=== PATIENT | male | born 1980 | race Caucasian/White ===

== ENCOUNTER 2017-01-12 09:46 | Day surgery (SDC) | payer OTHER ==
--- NOTE | 2017-01-11 13:15 | Pre-Procedure Note/Attestation ---
Pre-Procedure Note/Attestation Complete Prior to Procedure Planned Procedure: right Procedure Narrative: rt knee scope, medial meniscectomy Indications for Procedure Pre-Operative Diagnosis: rt knee medial meniscus tear Attestation I attest that I discussed the nature of the procedure; its benefits; risks and complications; and alternatives (and the risks and benefits of such alternatives ), prior to the procedure, with the patient (or the patient's legal visitor services representative). I attest that, if there was a reasonable possibility of needing a blood transfusion, the patient (or the patient's legal visitor services representative) was given the [facility] standardized written summary, pursuant to the [place] Blood Safety Act ([place] Health and Safety Code # 1645, as amended). I attest that I re-evaluated the patient just prior to the surgery and that there has been no change in the patient's H&P, except as documented below:NONE YUKI PATRICK Jan 11, 2017 13:14
[2017-01-12] VITALS (11 sets, daily range): BP systolic 113–138; BP diastolic 68–94
[~2017-01-12] VITALS: Ht 177.8 cm; Wt 81.6 kg
[~2017-01-12 09:46] MED LIST: NKM; ceFAZolin 1gm in D5W 55ml IVP ONE; celeBREX 200mg Cap **SURGERY PATIENTS ONLY ORAL ONE; oxyCONTIN 20mg tab ORAL ONE
[2017-01-12] MEDS ORDERED: XANAX XR1 MG ORAL (10:18)
[2017-01-12] MEDS ORDERED: Norco 5mg/325mg tab ORAL PRN (11:00)
[2017-01-12] MEDS ORDERED: Lidocaine 1% MPF 10mg/ml 5ml ONE (11:00)
[2017-01-12] MEDS ORDERED: Propofol 10mg/ml 20ml IV ONE (11:00)
[2017-01-12] MEDS ORDERED: Tylenol #3 tab (300mg/30mg) ORAL PRN (11:00)
[2017-01-12] MEDS ORDERED: LR 1000ml ONE (11:00)
[2017-01-12] MEDS ORDERED: D5 1/2NS 1,000 ML IV SCH (11:00)
[2017-01-12] MEDS ORDERED: Ketamine 500mg Inj ONE (11:00)
[2017-01-12] MEDS ORDERED: fentaNYL 100 mcg/2 mL IV ONE (11:00)
[2017-01-12] MEDS ORDERED: HYDROmorphone 1mg/ml Carpuject SUBQ PRN (11:00)
[2017-01-12] MEDS ORDERED: Midazolam 2mg/2ml Inj ONE (11:00)
[2017-01-12] MEDS ORDERED: Ropivacaine 5mg/ml Vial 20ml INJ ONE ×2 (11:04)
--- NOTE | 2017-01-12 11:28 | Anethesia Preoperative Eval ---
Anesthesia Pre-op PMH/ROS General Date of Evaluation: Jan 12, 2017 Anesthesiologist: Singh ASA Score: ASA 2 Mallampati Score Class I : Soft palate, uvula, fauces, pillars visible Class II: Soft palate, uvula, fauces visible Class III: Soft palate, base of uvula visible Class IV: Only hard plate visible Mallampati Classification: Class II Surgeon: Patel Diagnosis: Right knee pain Surgical Procedure: Right knee arthroscopy Anesthesia History: none Family History: no anesthesia problems Allergies: Coded Allergies: No Known Allergies (Unverified , 01/11/17) Medications: see eMAR Past Medical History Cardiovascular: Denies: CAD, HTN, TN, arrhythmia, other, valve dz Pulmonary: Denies: COPD, JAVED, asthma, other Gastrointestinal/Genitourinary: Reports: GERD, Denies: CRI, ESRD, other Neurologic/Psychiatric: Denies: CVA, TIA, dementia, depression/anxiety, other Endocrine: Denies: DM, hypothyroidism, other, steroids HEENT: Denies: [place] (L), [place] (R), cataract (L), cataract (R), glaucoma, other Hematology/Immune: Denies: DVT, anemia, bleeding disorder, other Musculoskeletal/Integumentary: Reports: other - psoriatic arthritis PSxH Narrative: left knee arthroscopy Anesthesia Pre-op Phys. Exam Physician Exam Last Vital Signs Date Time Temp Pulse Resp B/P Pulse Ox O2 Delivery O2 Flow Rate FiO2 01/12/17 10:07 98.0 74 20 113/68 97 Room Air Constitutional: NAD Cardiovascular: RRR Respiratory: CTA Airway Exam Mallampati Score: Class II MO: full ROM: full Teeth: intact Anesthesia Pre-op A/P Labs see chart Studies Pre-op Studies: EKG - sr Risk Assessment & Plan Assessment: ASA II Plan: GA Status Change Before Surgery: No Pre-Antibiotics Drug: Ancef 1g Given Within 1 Hr of Incision: DIANN Chu M.D. Jan 12, 2017 11:28
--- NOTE | 2017-01-12 11:31 | Immediate Post-Op Evaluation ---
Immediate Post-Op Evalulation Immediate Post-Op Evalulation Procedure: Right knee arthroscopy Date of Evaluation: Jan 12, 2017 Time of Evaluation: 12:17 IV Fluids: 400 Blood Products: 0 Estimated Blood Loss: 5 Urinary Output: 0 Blood Pressure Systolic: 122 Blood Pressure Diastolic: 88 Pulse Rate: 81 Respiratory Rate: 16 O2 Sat by Pulse Oximetry: 100 Temperature (Fahrenheit): 97.6 Pain Score (1-10): 0 Nausea: No Vomiting: No Complications 0 Patient Status: awake, reacts, patent, none Hydration Status: adequate Drug: Ancef 1g Given Within 1 Hr of Incision: Yes Time Given: 11:20 DIANN EL M.D. Jan 12, 2017 11:31
--- NOTE | 2017-01-12 11:31 | 48 Hour Post Anesthesia Eval ---
Post Anesthesia Evaluation Procedure: Right knee arthroscopy Date of Evaluation: Jan 12, 2017 Time of Evaluation: 13:45 Blood Pressure Systolic: 120 0: 79 Pulse Rate: 75 Respiratory Rate: 20 Temperature (Fahrenheit): 97.9 O2 Sat by Pulse Oximetry: 96 Airway: patent Nausea: No Vomiting: No Pain Intensity: 0 Hydration Status: adequate Cardiopulmonary Status: at baseline Mental Status/LOC: patient returned to baseline Post-Anesthesia Complications: 0 Follow-up care needed: ready to discharge DIANN EL M.D. Jan 12, 2017 11:31
--- NOTE | 2017-01-12 12:08 | Brief Operative Note ---
Immediate Post Operative Note Operative Note Chief Complaint: rt knee pain Pre-op Diagnosis: rt knee medial meniscus tear Procedure: rt knee scope, medial meniscectomy Post-op Diagnosis: same as pre-op Findings: consistent w/pre-op dx studies Surgeon: ganjianpour. lynn Powerbuilder: paramjit sparks Anesthesiologist: md zuleyka Anesthesia: general Specimen: none Complications: none Condition: stable Estimated Blood Loss: minimal Drains: none Implant(s) used?: No LITZY SPARKS Jan 12, 2017 12:08
--- NOTE | 2017-01-12 19:30 | Operative Note - Dictated ---
DATE OF OPERATION: 01/12/2017 PREOP DX: Right knee posterior horn and body medial meniscus tear. POSTOP DX: 1. Right knee large horizontal tear of the posterior horn and body medial meniscus with a displaced fragment into the notch involving 40% of medial meniscus. 2. No significant arthritic changes of the knee was noted. PROCEDURES: 1. Right knee arthroscopy and extensive intraarticular shaving. 2. Right knee partial medial meniscectomy involving 40% of posterior horn and body of the medial meniscus taken off the superior half of the tear and deep in the inferior half intact. SURGEON: Moose Sweeney M.D. CHANGE CONTROL MANAGER: Molly Jade PA-C. Churn Tender was present during the actual operative portion of the case and was important and essential part of the operation. During the operation, the virtual assistant held and operated the arthroscopic camera for visualization, assisted by manipulating the leg to help with visualization, and helped with essential parts of the repair process as necessary such as operating surgical instruments under surgeon supervision, suture management, and wound closures. ANESTHESIOLOGIST: Nguyen Winters M.D. ANESTHESIA: General LMA anesthesia. TOURNIQUET TIME: 25 minutes. EBL: Less than 20 mL. COMPLICATIONS: None. SURGICAL INDICATION: The patient is a 36-year-old male, who sustained the above injury to his knee. The patient was treated non-operative initially, but this did not alleviate the patients symptoms. Therefore, after discussing all non-surgical and surgical options, and discussing all foreseeable risk and benefits of surgery, the patient opted for surgical treatment as described above. PATIENT POSITIONING: Patient was brought to the operating room table and placed supine. All pressure points were well padded. General Anesthesia was induced and a well padded tourniquet was placed on the thigh. The lateral post was placed and positioned to allow for opening of the medial compartment of the knee without placing pressure over the fibular head. Patients entire leg was prepped and draped in the usual sterile fashion. Time out was performed and preop abx was given and after exsanguinating the lower extremity, the tourniquet was inflated to 275 mmHg. EXAMINATION OF THE KNEE UNDER ANESTHESIA: Before prepping and draping the knee and while the patient was relaxed under general anesthesia, the knee was examined for ROM, and anterior and posterior, medial and lateral, posterolateral, and posteromedial instability. Pivot shift testing was performed. There was no evidence of loss of motion or instability and the pivot shift testing was negative. PORTAL PLACEMENT: The lateral portal was placed with the knee flexed to 90 degrees at the level of inferior border of the patella in line with the lateral border of the patella. A cm skin incision was made with an eleven blade, and using a blunt obturator, the capsule was gently penetrated. Sterile saline solution was then infused inside the knee with the aid of a pump set at 35 mm mercury pressure. Under direct visualization, placement of the medial portal was preliminary judged using a spinal needle, and it was subsequently established using the same technique as the lateral portal. Care was given not to injure the cutaneous branches of the medial Saphenous nerve or the subcutaneous veins. DIAGNOSTIC ARTHROSCOPY: The suprapatellar patellar pouch was visualized. There was no evidence of scar tissue or loose fragments. The medial and lateral patellar facets and trochlear groove articular cartilage was visualized. These structures were intact and were devoid of any articular cartilage damage. The medial plica shelf and the corresponding medial femoral condyle articular cartilage were visualized. There was no significantly thickening of the medial plica shelf and there were no kissing? lesion over the medial femoral condyle. The lateral gutter and the posterolateral corner of the knee were visualized. There were no loose bodies, and the popliteus tendon and other structures of the posterolateral corner of the knee were intact intra-articularly. At this point, the knee was placed in the figure of four position and the lateral compartment was entered. The lateral femoral condyle, lateral tibial plateau, and the anterior, body, and the posterior horn of the lateral meniscus were visualized and probed. The articular surfaces were intact and devoid of articular cartilage damage. The lateral meniscus was completely intact both on its undersurface and on the top. The knee was then placed at 90 degree and the ACL and PCL were visualized and probed. The ACL was completely intact on visualization and probing, and it had excellent tension. The PCL was completely intact on visualization and probing and it had excellent tension. The medial compartment was then entered and the medial femoral condyle, medial tibial plateau, and the anterior, body, and the posterior horn of the medial meniscus were visualized and probed. The articular surfaces were intact and devoid of articular cartilage damage. There was a very large complex tear of the posterior horn and body of the medial meniscus involving the top half of the posterior horn and body of medial meniscus displaced into the notch. The inferior leaflets involving the inferior half of the meniscus was intact. The medial gutter was visualized. There was no evidence of defect or loose fragments. The scope was then brought back to the patella femoral compartment. OPERATIVE ARTHROSCOPY: At this point, all loose debris and fragments were removed with the use of suction motorized shaver. Specific attention was given to assure all visible loose fragments were irrigated out of the knee joint with pump inflow and cannula outflow system. At this point, attention was given to the medial meniscus. Using combination of baskets and kar, the torn portion of the medial meniscus was removed. Attention was given to remove all displaced and unstable portion of the medial meniscus while maintaining as much of the functional portion of the meniscus as possible. Approximately, 40% of the body and posterior horn and the top half of the horizontal cleavage tear of the medial meniscus was removed in this fashion. The transition between the meniscectomy portion and intact portion of the meniscus was smoothed out with combination of small baskets and kar. Excellent transition zone was obtained in this fashion. CONDITION AT DISCHARGE FROM OPERATING ROOM: The knee was irrigated with copious amount of normal saline at the end of the procedure. The scope was removed and the water was drained. The skin edges were re-approximated and sterile dressing was applied. All lap count and instrument counts were correct. Patient tolerated the procedure well without complications and was taken to the recovery room in stable conditions. Moose Sweeney M.D. DR: YAJAIRA JOB#: [id number] CC:
== END 2017-01-12 15:30 | disposition home or self-care (01) ==
LOC: SUR 09:46
DX: M23.221 Derangement of posterior horn of medial meniscus due to old tear or injury, right knee (principal); K21.9 Gastro-esophageal reflux disease without esophagitis; G47.00 Insomnia, unspecified; F41.1 Generalized anxiety disorder; L40.50 Arthropathic psoriasis, unspecified
CPT/HCPCS: 94003; 94150; J2250